=== PATIENT | female | born 1990 | race Caucasian/White ===

== ENCOUNTER 2023-03-17 14:11 | Outpatient (CLI) | payer BC | END 2023-03-17 14:12 | disposition home or self-care (01) | LOC: RAD 14:11 | PROVIDERS: ATTEND Nurse Practitioner Family | DX: M25.531 Pain in right wrist (principal) ==

== ENCOUNTER 2023-11-09 10:35 | Day surgery (SDC) | payer BC ==
[2023-11-05 09:39] VITALS: BMI 22.8
[2023-11-09] MEDS ORDERED: Midazolam HCl 2 mg/2 ml Vial ONE (12:08)
[2023-11-09] MEDS ORDERED: fentaNYL 50 mcg/mL 1 mL Vial ONE ×3 (12:08→15:48)
[2023-11-09] MEDS ORDERED: Bupivacaine PF 0.5% 30 ML VIAL ONE (12:09)
[2023-11-09] MEDS ORDERED: Dexmedetomidine 200 MCG/2 ML VIAL ONE (12:15)
[2023-11-09] MEDS ORDERED: CEFAZOLIN 2 GM VIAL ONE (12:16)
[2023-11-09] MEDS ORDERED: Sodium Chloride 0.9% 100 ML ONE (12:16)
[2023-11-09] MEDS ORDERED: fentaNYL PF 100 MCG/2 ML SYRINGE ONE (12:30)
[2023-11-09] MEDS ORDERED: PROPOFOL 20 ML ONE (12:30)
[2023-11-09] MEDS ORDERED: Lidocaine 1% PF 5 ML VIAL ONE (12:31)
[2023-11-09] MEDS ORDERED: Ketorolac Tromethamine 30 MG (1 mL) VIAL ONE (13:32)
[2023-11-09] MEDS ORDERED: Ondansetron PF 4 MG/2 ML Vial ONE (13:32)
[2023-11-09] MEDS ORDERED: Dexamethasone 20 MG/5 ML VIAL ONE (13:32)
[2023-11-09] MEDS ORDERED: HYDROmorphone 0.5 MG/0.5 ML SYRINGE ONE (15:48)
[2023-11-09] MEDS ORDERED: Promethazine HCl 25 MG/ML VIAL ONE (15:50)
[2023-11-09] MEDS ORDERED: HYDROcodone/Acetaminophen 5/325 mg Tablet ONE (17:03)
== END 2023-11-09 17:17 | disposition home or self-care (01) ==
LOC: SDC 10:35
PROVIDERS: ATTEND Orthopaedic Surgery
PROC: 3E0T3BZ Introduction of Anesthetic Agent into Peripheral Nerves and Plexi, Percutaneous Approach (ICD-10-PCS; principal; 2023-11-09)
PROC: 0QSJ04Z Reposition Right Fibula with Internal Fixation Device, Open Approach (ICD-10-PCS; principal; 2023-11-09)
DX: S82.891A Other fracture of right lower leg, initial encounter for closed fracture (principal); M25.371 Other instability, right ankle; Z88.5 Allergy status to narcotic agent; Z91.040 Latex allergy status; X50.1XXA Overexertion from prolonged static or awkward postures, initial encounter
CPT/HCPCS: C1713; J0665; J1100; J1170; J1885; J2250; J2405; J2550; J2704; J3010; J3490